=== PATIENT | female | born 1995 | race Caucasian/White ===

== ENCOUNTER 2017-05-14 18:14 | Outpatient (CLI) | payer OTHER ==
[~2017-05-14] VITALS: Ht 152.4 cm; Wt 72.0 kg
[~2017-05-14 18:14] MED LIST: CLARITIN10 MG PO; ENDOCET 5-3251 EACH PO; FERROUS SULFAT325 MG PO; HYDROCODON-ACE1 EAC7 PO; IBUPROFEN800 MG PO; PRENATAL COMPL1 EACH PO
[2017-05-14 18:26] VITALS: BP 127/67
[2017-05-14 19:47] VITALS: BP 111/73
== END 2017-05-14 20:00 | disposition home or self-care (01) ==
LOC: LDRP-OP 18:14 → 2WEST 18:17 → LDRP-OP 08-02 12:42
DX: O36.8130 Decreased fetal movements, third trimester, not applicable or unspecified (principal); Z3A.33 33 weeks gestation of pregnancy
CPT/HCPCS: 59025; G0378

== ENCOUNTER 2017-06-26 05:20 | Inpatient (IN) | payer OTHER ==
[~2017-06-26] VITALS: Ht 154.9 cm; Wt 77.0 kg
[2017-06-26] VITALS (8 sets, daily range): BP systolic 109–127; BP diastolic 53–81
[~2017-06-26 05:20] MED LIST changes: +PROAIR RESPICL90 MCG IH
[2017-06-26] MEDS ORDERED: ENDOCET 5-3251 EACH PO (08:52)
[2017-06-26] MEDS ORDERED: IBUPROFEN800 MG PO (08:52)
[2017-06-27 03:06] VITALS: BP 104/61
[2017-06-27 07:31] VITALS: BP 115/71
[2017-06-27 07:31] LABS: EOSINOPHIL (%) 0.8 % (0-5); EOSINOPHIL COUNT 0.1 K/uL (0-0.3); HEMATOCRIT 22.4 % (36.0-46.0); IMMATURE GRANULOCYTE (%) 0.5 % (0.0-0.7); INSTRUMENT ABS NEUTROPHIL CT 5.7 K/uL; LYMPHOCYTE COUNT 1.7 K/uL (1.0-2.8); MCH 20.3 PG (29.0-34.0); MCHC 29.5 G/DL (30.0-36.0); MCV 68.9 FL (83-99); MEAN PLAT.VOLUME 10.1 uM^3 (9.5-12.4); MONOCYTE (%) 6.4 % (3-12); MONOCYTE COUNT 0.5 K/uL (0-0.8); NEUTROPHIL COUNT 5.7 K/uL (1.8-6.4); PLATELET COUNT 214 K/uL (156-360); RBC DIS.WIDTH-CV 17.5 % (11.8-14.6); RBC DIS.WIDTH-SD 42.4 % (39-53); RED BLOOD COUNT 3.25 M/uL (3.80-5.20)
[2017-06-27 10:42] VITALS: BP 108/62
[2017-06-27 14:53] VITALS: BP 117/74
[2017-06-28 06:58] LABS: EOSINOPHIL (%) 1.6 % (0-5); EOSINOPHIL COUNT 0.2 K/uL (0-0.3); HEMATOCRIT 23.9 % (36.0-46.0); IMMATURE GRANULOCYTE (%) 0.4 % (0.0-0.7); INSTRUMENT ABS NEUTROPHIL CT 6.2 K/uL; LYMPHOCYTE COUNT 2.3 K/uL (1.0-2.8); MCH 20.4 PG (29.0-34.0); MCHC 29.7 G/DL (30.0-36.0); MCV 68.7 FL (83-99); MEAN PLAT.VOLUME 10.3 uM^3 (9.5-12.4); MONOCYTE (%) 4.8 % (3-12); MONOCYTE COUNT 0.4 K/uL (0-0.8); NEUTROPHIL (%) 68.1 % (45-76); NEUTROPHIL COUNT 6.2 K/uL (1.8-6.4); PLATELET COUNT 251 K/uL (156-360); RBC DIS.WIDTH-CV 17.7 % (11.8-14.6); RBC DIS.WIDTH-SD 41.9 % (39-53); RED BLOOD COUNT 3.48 M/uL (3.80-5.20); WHITE BLOOD COUNT 9.2 K/uL (4.1-10.2)
[2017-06-28 07:07] VITALS: BP 123/76
[2017-06-28] MEDS ORDERED: NORCO 5/3251 TABLET PO (13:19)
== END 2017-06-28 17:12 | disposition home or self-care (01) | DRG 765 ==
LOC: 2WEST 05:20 → 2SOUTH 08:40 → 2WEST 06-28 17:12 → 2SOUTH 07-02 10:22
PROVIDERS: Obstetrics & Gynecology
PROC: 10D00Z1 Extraction of Products of Conception, Low, Open Approach (ICD-10-PCS; principal; 2017-06-26)
DX: O34.211 Maternal care for low transverse scar from previous cesarean delivery (principal); O99.02 Anemia complicating childbirth; D62 Acute posthemorrhagic anemia; N85.8 Other specified noninflammatory disorders of uterus; O99.824 Streptococcus B carrier state complicating childbirth; O99.72 Diseases of the skin and subcutaneous tissue complicating childbirth; L30.9 Dermatitis, unspecified; Z3A.39 39 weeks gestation of pregnancy; Z37.0 Single live birth
CPT/HCPCS: 36415; 85025; 86900; 86901; J0690; J1885; J2274; J2405; J3010; J7120